=== PATIENT | male | born 1980 | race Caucasian/White ===

== ENCOUNTER 2022-10-10 19:52 | Emergency (ER) | payer BC ==
[~2022-10-10] VITALS: Ht 185.4 cm; Wt 99.8 kg
[2022-10-10] MEDS ORDERED: OZEMPIC0.25 MG/0. SUBCUTANEO (20:12)
== END 2022-10-10 22:16 | disposition home or self-care (01) ==
LOC: ER 19:52
DX: S40.212A Abrasion of left shoulder, initial encounter (principal); V00.831A Fall from motorized mobility scooter, initial encounter; Y93.I9 Activity, other involving external motion; Y92.413 State road as the place of occurrence of the external cause; S50.312A Abrasion of left elbow, initial encounter; Z88.8 Allergy status to other drugs, medicaments and biological substances; S52.92XA Unspecified fracture of left forearm, initial encounter for closed fracture

== ENCOUNTER → 2024-06-17 | Emergency (ER) | payer OTHER ==
[~2024-06-17] VITALS: Ht 185.4 cm; Wt 90.7 kg
[~2024-06-17] MED LIST: ACETAMINOPHEN 120 MG SUPP.RECT RECTAL ONE; OZEMPIC0.25 MG/0. SUBCUTANEO
== END | disposition left against medical advice (07) ==
LOC: ER 00:45
DX: Z53.21 Procedure and treatment not carried out due to patient leaving prior to being seen by health care provider (principal)